=== PATIENT | female | born 1965 | race Caucasian/White ===

== ENCOUNTER → 2016-10-13 | Outpatient (CLI) | payer BC ==
[2016-10-13 09:49] LABS: Basophils # (A) 0.1 k/uL (0-0.2); Basophils % (A) 1 %; CHCM 33.3; Eosinophils # (A) 0.2 k/uL (0-0.7); Eosinophils % (A) 2 %; HDW 2.54; HGB 15.3 gm/dL (11.4-16.0); Luc # (Auto) 0.22; Luc % (Auto) 2; Lymphocytes # (A) 2.8 k/uL (1.0-4.8); Lymphocytes % (A) 30 %; MCH 28.4 pg (25.0-35.0); MCHC 32.5 g/dL (31.0-37.0); MCV 87.4 fL (80.0-100.0); Mean Platelet Volume 8.1; Monocytes # (A) 0.6 k/uL (0-1.0); Monocytes % (A) 7 %; Neutrophils # (A) 5.4 k/uL (1.3-7.7); Neutrophils % (A) 58 %; RBC 5.37 m/uL (3.80-5.40); RDW 13.2 % (11.5-15.5); WBC 9.3 k/uL (3.8-10.6); WBC (Perox) 9.32
[2016-10-13 10:14] LABS: ALT 32 U/L (9-52); AST 15 U/L (14-36); Alkaline Phosphatase 60 U/L (38-126); Anion Gap 12 mmol/L; Blood Urea Nitrogen 16 mg/dL (7-17); Calcium 9.3 mg/dL (8.4-10.2); Carbon Dioxide 26 mmol/L (22-30); Chloride 105 mmol/L (98-107); Cholesterol 86 mg/dL (<200); Glucose 101 mg/dL (74-99); HDL Cholesterol 62 mg/dL (40-60); Non-African American GFR(MDRD) >60 (>60 ml/min/1.73 sqM); Potassium 4.4 mmol/L (3.5-5.1); Sodium 143 mmol/L (137-145); Total Bilirubin 0.3 mg/dL (0.2-1.3); Total Protein 7.3 g/dL (6.3-8.2); Triglycerides 25 mg/dL (<150)
== END | disposition home or self-care (01) ==
LOC: LABWHC1 09:21
PROVIDERS: ATTEND Internal Medicine Critical Care Medicine
DX: Z00.00 Encounter for general adult medical examination without abnormal findings (principal)
CPT/HCPCS: 36415; 80053; 80061; 82306; 83036; 84439; 84443; 85025

== ENCOUNTER 2017-11-03 19:24 | Emergency (ER) | payer BC ==
--- NOTE | 2017-11-03 19:40 | ED ---
General Adult HPI - General Chief complaint: Back Pain/Injury Stated complaint: Back Pain Time Seen by Provider: 11/03/17 19:40 Source: patient Mode of arrival: wheelchair Limitations: no limitations - History of Present Illness Initial comments: Luis is a 52-year-old obese female who presents to the emergency department today for evaluation of low back, right buttock and right leg pain. Patient reports she has a history of chronic back pain however is been worsened since last weekend. Patient reports that last weekend she did do some pretty excessive gardening and afterwards was noting some soreness in her back and hip. She states that earlier this week she was down on her hands and knees attempting to clean a spot on the carpet and when she attempted to stand she had severe worsening pain in her right hip radiating down the leg. She states that she was in so much pain she could not stand upright and had worsening pain with ambulation. She saw her primary care physician 2 days ago and was 2 shots and was prescribed steroids and Flexeril. She states that despite being compliant with these medications and taking Motrin at home she's had progressively worsening pain, this evening she states that she cannot tolerate the pain any longer so she asked her to bring her to the hospital for further evaluation. Patient denies any fevers, she denies any weakness in the lower extremities, she denies any incontinence of bowel or bladder, she denies any urinary retention or difficulty having bowel movements. - Related Data Home Medications Medication Instructions Recorded Confirmed Cyclobenzaprine [Flexeril] 10 mg PO TID PRN 11/03/17 11/03/17 Ibuprofen [Motrin Ib] 600 mg PO TID PRN 11/03/17 11/03/17 methylPREDNISolone [Medrol Dose See Taper PO DIRECTED 11/03/17 11/03/17 Pack] Previous Rx's Medication Instructions Recorded traMADol HCL [Ultram] 50 mg PO Q4HR PRN 3 Days #15 tab 11/03/17 Allergies Allergy/AdvReac Type Severity Reaction Status Date / Time No Known Allergies Allergy Verified 11/03/17 20:14 Review of Systems ROS Statement: Those systems with pertinent positive or pertinent negative responses have been documented in the HPI. ROS Other: All systems not noted in ROS Statement are negative. Constitutional: Denies: fever, chills Respiratory: Denies: cough, dyspnea Cardiovascular: Denies: chest pain, palpitations Endocrine: Denies: fatigue Gastrointestinal: Reports: nausea (when the pain gets worse). Denies: abdominal pain, vomiting Genitourinary: Denies: urgency, dysuria, frequency, hematuria, discharge Musculoskeletal: Reports: back pain, myalgia Skin: Denies: rash, lesions, change in color Neurological: Reports: abnormal gait (antalgic ). Denies: headache, weakness, numbness, paresthesias, confusion Psychiatric: Reports: anxiety Hematological/Lymphatic: Denies: easy bleeding, easy bruising Past Medical History Past Medical History: Cancer Additional Past Medical History / Comment(s): skin ca on face 2009, HX OF VALLEY FEVER History of Any Multi-Drug Resistant Organisms: None Reported Past Surgical History: Cholecystectomy Additional Past Surgical History / Comment(s): HX LT UPPER LOBECTOMY R/T VALLEY FEVER Past Anesthesia/Blood Transfusion Reactions: Postoperative Nausea & Vomiting ( PONV) Past Psychological History: Anxiety, Depression Smoking Status: Current every day smoker Past Alcohol Use History: Occasional Past Drug Use History: None Reported - Past Family History Mother Family Medical History: No Reported History General Exam Limitations: no limitations General appearance: alert, in distress (appears uncomfortable, cannot find a comfortable position, ambulating around bed to reposition herself) Head exam: Present: atraumatic, normocephalic Eye exam: Present: normal appearance, PERRL ENT exam: Present: normal exam Neck exam: Present: normal inspection Respiratory exam: Present: normal lung sounds bilaterally. Absent: respiratory distress Cardiovascular Exam: Present: regular rate GI/Abdominal exam: Present: soft. Absent: distended Extremities exam: Present: full ROM, tenderness (tenderness to palpation of musculature of right buttock), normal capillary refill. Absent: pedal edema, joint swelling Back exam: Present: normal inspection, full ROM. Absent: tenderness, CVA tenderness (R), CVA tenderness (L), muscle spasm, paraspinal tenderness, vertebral tenderness, rash noted Neurological exam: Present: alert, oriented X3, abnormal gait (antalgic gait) Psychiatric exam: Present: anxious Skin exam: Present: warm, diaphoretic (from pain ) Course Vital Signs 11/03/17 11/03/17 11/03/17 19:30 19:50 20:34 Temperature 98.2 F 98.4 F 97.9 F Pulse Rate 95 96 77 Respiratory 18 16 18 Rate Blood Pressure 149/72 138/89 143/73 O2 Sat by Pulse 99 95 97 Oximetry 11/03/17 20:39 Temperature 98.0 F Pulse Rate 69 Respiratory 16 Rate Blood Pressure 154/73 O2 Sat by Pulse 97 Oximetry - Reevaluation(s) Reevaluation #1: Was reevaluated, reports that after single dose of morphine her pain has decreased to a 2 out of 10. She does report some discomfort when ambulating to the restroom but was able to do so independently and provide a urine sample without difficulty. 11/03/17 20:53 Medical Decision Making - Medical Decision Making The patient was seen and evaluated, history was obtained from the patient and her at bedside The patient appears very uncomfortable, she is sweating and complaining of pain in her right buttock radiating down her right leg, she is able to ambulate around the bed. Patient has strong pulses in the bilateral lower extremities, extremities are warm with full range of motion and no focal weakness. She denies any red flag symptoms for cauda equina syndrome. Labs with leukocytosis likely reactive to pain X-rays unremarkable Urinalysis with no evidence of UTI or gross hematuria to suggest a kidney stone She was again reevaluated and is comfortable, at this time I do feel the patient is suffering from sciatica and will discharge her home with Ultram as well as instructions on sciatica, piriformis syndrome and appropriate stretches she can do to improve her symptoms. I advised the patient to follow up with her primary care physician for reevaluation and discussion of physical therapy. Discussed with the patient that she will be prescribed Ultram which is in the narcotic family and can be addictive. Patient expresses understanding of this. Patient agreement to 3 day prescription for Ultram and follow-up with her primary care physician. All questions pertaining to care were answered to the best of my ability and the patient was discharged home in stable condition. - Lab Data Result diagrams: 11/03/17 20:00 11/03/17 20:00 Lab Results 11/03/17 11/03/17 11/03/17 Range/Units 20:00 20:00 20:36 WBC 14.3 H (3.8-10.6) k/uL RBC 5.62 H (3.80-5.40) m/uL Hgb 15.9 (11.4-16.0) gm/dL Hct 46.0 (34.0-46.0) % MCV 81.8 (80.0-100.0) fL MCH 28.4 (25.0-35.0) pg MCHC 34.7 (31.0-37.0) g/dL RDW 13.6 (11.5-15.5) % Plt Count 241 (150-450) k/uL Neutrophils % 77 % Lymphocytes % 16 % Monocytes % 4 % Eosinophils % 1 % Basophils % 0 % Neutrophils # 11.0 H (1.3-7.7) k/uL Lymphocytes # 2.3 (1.0-4.8) k/uL Monocytes # 0.6 (0-1.0) k/uL Eosinophils # 0.2 (0-0.7) k/uL Basophils # 0.0 (0-0.2) k/uL Sodium 138 (137-145) mmol/L Potassium 4.4 (3.5-5.1) mmol/L Chloride 105 (98-107) mmol/L Carbon Dioxide 19 L (22-30) mmol/L Anion Gap 14 mmol/L BUN 15 (7-17) mg/dL Creatinine 0.50 L (0.52-1.04) mg/dL Est GFR (CKD-EPI)AfAm >90 (>60 ml/min/1.73 sqM) Est GFR (CKD-EPI)NonAf >90 (>60 ml/min/1.73 sqM) Glucose 116 H (74-99) mg/dL Calcium 10.0 (8.4-10.2) mg/dL Creatine Kinase 50 (30-135) U/L Urine Color Yellow Urine Appearance Clear (Clear) Urine pH 5.5 (5.0-8.0) Ur Specific [place] 1.020 (1.001-1.035) Urine Protein Negative (Negative) Urine Glucose (UA) Negative (Negative) Urine Ketones 1+ H (Negative) Urine Blood Small H (Negative) Urine Nitrite Negative (Negative) Urine Bilirubin Negative (Negative) Urine Urobilinogen <2.0 (<2.0) mg/dL Ur Leukocyte Esterase Negative (Negative) Urine RBC 2 (0-5) /hpf Urine WBC <1 (0-5) /hpf Ur Squamous Epith Cells 1 (0-4) /hpf Urine Bacteria Rare H (None) /hpf Urine Mucus Occasional H (None) /hpf Disposition Clinical Impression: Sciatica Disposition: HOME SELF-CARE Condition: Good Instructions: Sciatica (ED), Lumbar Radiculopathy (ED), Piriformis Syndrome (ED ) Prescriptions: traMADol HCL [Ultram] 50 mg PO Q4HR PRN 3 Days #15 tab PRN Reason: Pain Is patient prescribed a controlled substance at d/c from ED?: Yes Referrals: Marvin Schmitz DO [Primary Care Provider] - 1-2 days Time of Disposition: 21:48
[2017-11-03] MEDS ORDERED: MORPHINE SULFATE 2 MG/ML SYRINGE IVP STA (20:01)
[2017-11-03] MEDS ORDERED: ONDANSETRON 4 MG/2 ML VIAL IVP STA (20:10)
[2017-11-03 20:17] LABS: Basophils % (A) 0 %; Eosinophils # (A) 0.2 k/uL (0-0.7); Eosinophils % (A) 1 %; HGB 15.9 gm/dL (11.4-16.0); Lymphocytes # (A) 2.3 k/uL (1.0-4.8); Lymphocytes % (A) 16 %; MCH 28.4 pg (25.0-35.0); MCHC 34.7 g/dL (31.0-37.0); MCV 81.8 fL (80.0-100.0); Mean Platelet Volume 8.2; Monocytes # (A) 0.6 k/uL (0-1.0); Monocytes % (A) 4 %; Neutrophils % (A) 77 %; Platelet Count 241 k/uL (150-450); RBC 5.62 m/uL (3.80-5.40); RDW 13.6 % (11.5-15.5); WBC 14.3 k/uL (3.8-10.6)
[2017-11-03 20:32] LABS: Anion Gap 14 mmol/L; Blood Urea Nitrogen 15 mg/dL (7-17); Carbon Dioxide 19 mmol/L (22-30); Chloride 105 mmol/L (98-107); Creatine Kinase 50 U/L (30-135); Glucose 116 mg/dL (74-99); Potassium 4.4 mmol/L (3.5-5.1); Sodium 138 mmol/L (137-145)
[2017-11-03 20:41] VITALS: RESP 16
[2017-11-03 21:03] LABS: Appearance,Urine Clear (Clear); Bacteria,Urine Rare /hpf; Bilirubin,Urine Negative (Negative); Blood,Urine Small (Negative); Color,Urine Yellow; Glucose,Urine (UA) Negative (Negative); Ketones,Urine 1+ (Negative); Leukocyte Esterase,Urine Negative (Negative); Mucus,Urine Occasional /hpf; Nitrite,Urine Negative (Negative); PH, Urine 5.5 (5.0-8.0); Protein,Urine Negative (Negative); RBC,Urine 2 /hpf (0-5); Squamous Epithelial Cell,Urine 1 /hpf (0-4); Urobilinogen,Urine <2.0 mg/dL (<2.0); WBC,Urine <1 /hpf (0-5)
--- NOTE | 2017-11-03 21:16 | XR ---
EXAMINATION TYPE: XR pelvis AP view DATE OF EXAM: 11/03/2017 COMPARISON: NONE HISTORY: Low back pain TECHNIQUE: Single view FINDINGS: Pelvic ring is intact. Proximal femurs and hip joints appear normal. Sacroiliac joints are normal. IMPRESSION: Normal pelvis
--- NOTE | 2017-11-03 21:17 | XR ---
EXAMINATION TYPE: XR lumbar spine 2 or 3V DATE OF EXAM: 11/03/2017 COMPARISON: NONE HISTORY: Low back pain TECHNIQUE: 3 views FINDINGS: Lumbar vertebra have normal spacing and alignment. Posterior elements are intact. There is no compression fracture. Sacroiliac joints appear normal. IMPRESSION: Lumbar spine appears normal for age.
[2017-11-03] MEDS ORDERED: MORPHINE SULFATE 2 MG/ML SYRINGE IM STA (22:03)
[2017-11-03 22:28] VITALS: BP 156/91; PULSE 80; TEMP 98.3
== END 2017-11-03 22:30 | disposition home or self-care (01) ==
LOC: EC 19:24
DX: M54.31 Sciatica, right side (principal); F17.200 Nicotine dependence, unspecified, uncomplicated; Z85.828 Personal history of other malignant neoplasm of skin; Z79.52 Long term (current) use of systemic steroids
CPT/HCPCS: 36415; 80048; 82550; 85025; 81001; 72100; 72170; 99284; 96374; 96375; 96372; J2405; J2270

== ENCOUNTER → 2018-12-27 | Outpatient (CLI) | payer OTHER ==
[2018-12-27 11:00] LABS: Basophils # (A) 0.1 k/uL (0-0.2); Basophils % (A) 1 %; Eosinophils # (A) 0.2 k/uL (0-0.7); Eosinophils % (A) 2 %; HGB 14.6 gm/dL (11.4-16.0); Lymphocytes # (A) 2.7 k/uL (1.0-4.8); Lymphocytes % (A) 30 %; MCH 28.1 pg (25.0-35.0); MCHC 31.7 g/dL (31.0-37.0); MCV 88.8 fL (80.0-100.0); Mean Platelet Volume 8.4; Monocytes # (A) 0.5 k/uL (0-1.0); Monocytes % (A) 5 %; Neutrophils # (A) 5.5 k/uL (1.3-7.7); Neutrophils % (A) 60 %; Platelet Count 219 k/uL (150-450); RBC 5.18 m/uL (3.80-5.40); RDW 15.2 % (11.5-15.5); WBC 9.1 k/uL (3.8-10.6)
[2018-12-27 17:47] LABS: Hemoglobin A1C 5.1 % (4.0-6.0)
[2018-12-27 18:02] LABS: ALT 30 U/L (8-44); AST 24 U/L (13-35); African American GFR (CKD) 118.9 (60.0-200.0); Alkaline Phosphatase 71 U/L (41-126); Calcium 9.4 mg/dL (8.7-10.3); Chloride 108 mmol/L (96-109); Chol/HDL Ratio 1.54; Cholesterol 91 mg/dL (0-200); Globulin 2.1 g/dL (1.6-3.3); Glucose 99 mg/dL (70-110); Non-African American GFR(CKD) 102.6 (60.0-200.0); Potassium 4.7 mmol/L (3.5-5.5); Sodium 142 mmol/L (135-145); Total Bilirubin 0.3 mg/dL (0.2-1.2); Total Protein 6.5 g/dL (6.2-8.2); Triglycerides <50.0 mg/dL (0.0-149.0); VLDL Calculation 9.98 mg/dL (5.00-40.00)
== END | disposition home or self-care (01) ==
LOC: LABWHC1 10:02
PROVIDERS: ATTEND Internal Medicine Critical Care Medicine
DX: Z00.00 Encounter for general adult medical examination without abnormal findings (principal); J44.9 Chronic obstructive pulmonary disease, unspecified; M54.41 Lumbago with sciatica, right side; E55.9 Vitamin D deficiency, unspecified
CPT/HCPCS: 36415; 80053; 80061; 82306; 83036; 84439; 84443; 85025

== ENCOUNTER → 2019-03-06 | Outpatient (CLI) | payer OTHER ==
--- NOTE | 2019-03-08 13:59 | MM ---
Reason for exam: screening (asymptomatic). Last mammogram was performed 4 years and 3 months ago. History: Patient has history of other cancer at age 43. Family history of breast cancer in maternal grandmother. Took hormonal contraceptives for 15 years. Physical Findings: A clinical breast exam by your physician is recommended on an annual basis and results should be correlated with mammographic findings. MG Screening Mammo w CAD Bilateral CC and MLO view(s) were taken. Prior study comparison: November 26, 2014, bilateral MG screening mammo w CAD. April 05, 2011, right diagnostic mammogram w/CAD. The breast tissue is heterogeneously dense. This may lower the sensitivity of mammography. No suspicious abnormality. No significant changes when compared with prior studies. ASSESSMENT: Negative, BI-RAD 1 RECOMMENDATION: Routine screening mammogram of both breasts in 1 year.
== END ==
LOC: RADMAMWWP 09:45
PROVIDERS: ATTEND Obstetrics & Gynecology
DX: Z12.31 Encounter for screening mammogram for malignant neoplasm of breast (principal)
CPT/HCPCS: 77067

== ENCOUNTER → 2024-05-29 | Outpatient (CLI) | payer OTHER ==
--- NOTE | 2024-05-29 10:01 | CTL ---
EXAMINATION TYPE: CT Low Dose Lung DATE OF EXAM ORDERED: 05/29/2024 COMPARISON: None CLINICAL INDICATION: Female, 59 years old with history of Z12.31 BR CA SCREEN Z12.2 LUNG CA SCR Z87.8 91 SMOK; [facility], former smoker, quit 4 years ago, smoked 1 ppd x 20 years., Lung cancer screening, Histo ry of Smoking/tobacco use. TECHNIQUE: Low dose computed tomography scan was performed through the chest at 1 mm thick sections a nd reconstructed images in multiple planes at 1 mm and [address] DLP: 142.[address] CTDI: 3.8 mGy Automated exposure control for dose reduction was used. CT DIAGNOSTIC QUALITY: Satisfactory FINDINGS: Nodules: No clinically significant pulmonary nodules. LUNGS: COPD: Severity: None Fibrosis: Severity: None Lymph nodes: None Other findings: Linear scarring within the left upper lobe. RIGHT PLEURAL SPACE: Effusion: None Calcification: None Thickening: None Pneumothorax: None LEFT PLEURAL SPACE: Effusion: None Calcification: None Thickening: None Pneumothorax: None HEART: Heart Size: Normal Coronary Calcification: None Pericardial Effusion: Trace OTHER FINDINGS: Upper abdomen: Visualized liver is diffusely hypoattenuating. Postvasectomy changes. Bony thorax: None Supraclavicular region: Prominent thyroid gland. Other: None IMPRESSION: 1. No clinically significant pulmonary nodules. 2. Hepatic steatosis. CT LUNG RAD AND CT CHEST RECOMMENDATION: Lung-Rad 1 Negative: Continue annual screening with LDCT in 12 months. S Modifier (other clinically significant findings): None [facility], , 05/29/2024 9:58 AM
--- NOTE | 2024-06-04 07:24 | MM ---
Reason for Exam: Screening (asymptomatic). Last mammogram was performed 5 year(s) and 2 month(s) ago. Patient History: Menarche at age 11. First Full-Term at age 24. Postmenopausal. Other cancer, age 43. Patient used Hormonal Contraceptives for 15 years. Maternal grandmother had breast cancer. Risk Values: Giovanna 5 year model risk: 1.6%. NCI Lifetime model risk: 7.9%. Prior Study Comparison: 04/05/2011 Right Diagnostic Mammogram, [facility]. 11/26/2014 Bilateral Screening Mammogram, [facility]. 03/06/2019 Bilateral Screening Mammogram, [facility]. Tissue Density: There are scattered areas of fibroglandular density. Findings: Analyzed By CAD. Right breast: There is no suspicious group of microcalcifications or new suspicious mass. Left breast: There is no suspicious group of microcalcifications or new suspicious mass. Overall Assessment: Negative, BI-RAD 1 Management: Screening Mammogram of both breasts in [address] [facility] will attempt to contact patient to return for supplemental views and ultrasound if indicated. Patient should continue monthly self-breast exams. A clinical breast exam by your physician is recommended on an annual basis. This exam should not preclude additional follow-up of suspicious palpable abnormalities. Note on Giovanna scores and lifetime risk: 1. A Giovanna score greater than 3% is considered moderate risk. If this is the case, consider specialist referral to assess eligibility for a risk reducing agent. 2. If overall lifetime risk for the development of breast cancer is 20% or higher, the patient may qualify for future screening with alternating mammogram and breast MRI. [facility], , 06/04/2024 7:21 AM. Electronically signed and approved by: Marvin Puente DO
== END | disposition home or self-care (01) ==
LOC: RADCTMAIN 07:46
PROVIDERS: ATTEND Family Medicine
DX: Z12.31 Encounter for screening mammogram for malignant neoplasm of breast (principal); Z12.2 Encounter for screening for malignant neoplasm of respiratory organs; Z78.0 Asymptomatic menopausal state; Z80.3 Family history of malignant neoplasm of breast; R92.323 Mammographic fibroglandular density, bilateral breasts; Z87.891 Personal history of nicotine dependence; K76.0 Fatty (change of) liver, not elsewhere classified
CPT/HCPCS: 71271; 77067